=== PATIENT | male | born 1965 | race Caucasian/White ===

== ENCOUNTER 2018-01-14 21:24 | Emergency (ER) | payer OTHER ==
[2018-01-14 21:35] VITALS: BP 134/86; PULSE 95; TEMP 99.6; BMI 28.7
--- NOTE | 2018-01-14 21:48 | PDOC ---
History of Present Illness - History of Present Illness Initial Comments: 01/14/18 22:18 The patient is a 52 year old male with no significant past medical history who presents to the ER with one week history of subjective fever, sore throat, and productive cough. Patient is also complaining of generalized body aches and weakness. Patient states his cough is productive of yellow colored phlegm. Patient denies any blood streaks in his sputum. Patient took Tylenol and Motrin morning but has not taken anything since. Patient reports his last physical was one year ago, and does not currently have a PCP. Patient states one of his coworkers was sick but is now feeling better. Denies recent travel. Patient reports that he does not work outdoors and denies any tick bites. The patient denies chest pain, shortness of breath, headache, and dizziness. Denies chills, nausea, vomit, diarrhea, and constipation. Denies dysuria, frequency, urgency, and hematuria. Allergies: NKA Past surgical history: None reported. Social history: No reported alcohol, drug, or cigarette use. ADULT COMPREHENSIVE ROS CONSTITUTIONAL: Absent: chills, diaphoresis, loss of appetite Present: Subjective fevers. Generalized weakness. Body aches. HEENT: Absent: rhinorrhea, nasal congestion, throat pain, throat swelling, difficulty swallowing, mouth swelling, ear pain, eye pain, visual Changes CARDIOVASCULAR: Absent: chest pain, syncope, palpitations, irregular heart rate, lightheadedness , peripheral edema RESPIRATORY: Absent: shortness of breath, dyspnea with exertion, orthopnea, wheezing, stridor , hemoptysis Present: Cough. Sore throat. GASTROINTESTINAL: Absent: abdominal pain, abdominal distension, nausea, vomiting, diarrhea, constipation, melena, hematochezia GENITOURINARY: Absent: dysuria, frequency, urgency, hesitancy, hematuria, flank pain, genital pain MUSCULOSKELETAL: Absent: myalgia, arthralgia, joint swelling SKIN: Absent: rash, itching, pallor HEMATOLOGIC/IMMUNOLOGIC: Absent: easy bleeding, easy bruising, lymphadenopathy, frequent infections ENDOCRINE: Absent: unexplained weight gain, unexplained weight loss, heat intolerance, cold intolerance NEUROLOGIC: Absent: headache, focal weakness or paresthesias, dizziness, unsteady gait, seizure, mental status changes, bladder or bowel incontinence PSYCHIATRIC: Absent: anxiety, depression, suicidal or homicidal ideation, hallucinations. Adult Comprehensive PE GENERAL: Well developed, well nourished. Awake and alert. No acute distress. HEENT: Normocephalic, atraumatic. PERRLA, EOMI. No conjunctival pallor. Sclera are non- icteric. Moist mucous membranes. Oropharynx is clear. NECK: Supple. Full ROM. No JVD. Carotid pulses 2+ and symmetric, without bruits. No thyromegaly. No lymphadenopathy. CARDIOVASCULAR: Regular rate and rhythm. No murmurs, rubs, or gallops. Distal pulses are 2+ and symmetric. PULMONARY: No evidence of respiratory distress. Lungs clear to auscultation bilaterally. No wheezing, rales or rhonchi. ABDOMINAL: Soft. Non-tender. Non-distended. No rebound or guarding. No organomegaly. Normoactive bowel sounds. MUSCULOSKELETAL Normal range of motion at all joints. No bony deformities or tenderness. No CVA tenderness. EXTREMITIES: No cyanosis. No clubbing. No edema. No calf tenderness. SKIN: Warm and dry. Normal capillary refill. No rashes. No jaundice. NEUROLOGICAL: Alert, awake, appropriate. Cranial nerves 2-12 intact. No deficits to light touch and temperature in face, upper extremities and lower extremities. No motor deficits in the in face, upper extremities and lower extremities. Normoreflexic in the upper and lower extremities. Normal speech. Toes are down- going bilaterally. Gait is normal without ataxia. PSYCHIATRIC: Cooperative. Good eye contact. Appropriate mood and affect. <Deneen Bennett - Last Filed: 01/14/18 22:19> - General History Source: Patient Exam Limitations: No Limitations - History of Present Illness Initial Comments: A portion of this note was documented by scribe services under my direction. I have reviewed the details of the note, within reason, and agree with the documentation. The case summary and management plan written by me. 01/14/18 22:17 This is a 52-year-old male Swedish speaking who required the use of an deaf interpreter to obtain the history. Patient has had 1 week of progressive cough productive of greenish yellow phlegm. Patient has a low-grade fever here in the emergency room otherwise his vitals are normal. Patient had a normal exam however will obtain 8 chest x-ray to rule out infiltrate. 01/14/18 22:40 Chest Xshow a probable retrocardiac infiltrate. Patient will be given a dose of IV ceftriaxone CBC and comp were sent and also a dose of by mouth azithromycin. Patient will be discharged on by mouth azithromycin <Raghav Garcia I - Last Filed: 01/14/18 23:12> - General Chief Complaint: Cold Symptoms Stated Complaint: FEVER/BODY ACHES Time Seen by Provider: 01/14/18 21:28 Past History <Deneen Bennett - Last Filed: 01/14/18 22:19> - Past Medical History COPD: No - Suicide/Smoking/Psychosocial Hx Smoking History: Never smoked <Raghav Garcia I - Last Filed: 01/14/18 23:12> - Past Medical History Allergies/Adverse Reactions: Allergies Allergy/AdvReac Type Severity Reaction Status Date / Time No Known Allergies Allergy Unverified 01/14/18 21:28 Home Medications: Ambulatory Orders Azithromycin [Zithromax 250mg Tablets -] 250 mg PO DAILY #4 tab 01/14/18 Guaifenesin/Dextromethorphan [Mucinex Fast-Max Dm Max Liquid] 180 ml PO Ibuprofen [Motrin Ib] 200 mg PO 01/14/18 Naproxen Sodium 220 mg PO 01/14/18 Phenylephrine/Dm/Acetaminop/GG [Tylenol Cold & Flu Severe Cplt] 1 each PO *Physical Exam - Vital Signs Last Vital Signs Temp Pulse Resp BP Pulse Ox 99.6 F 95 H 16 134/86 96 01/14/18 21:32 01/14/18 21:32 01/14/18 21:32 01/14/18 21:32 01/14/18 21:32 <Deneen Bennett - Last Filed: 01/14/18 22:19> - Vital Signs Last Vital Signs Temp Pulse Resp BP Pulse Ox 99.6 F 95 H 16 134/86 96 01/14/18 21:32 01/14/18 21:32 01/14/18 21:32 01/14/18 21:32 01/14/18 21:32 <Raghav Garcia I - Last Filed: 01/14/18 23:12> ED Treatment Course - LABORATORY CBC & Chemistry Diagram: 01/14/18 22:51 01/14/18 22:51 <Raghav Garcia I - Last Filed: 01/14/18 23:12> *DC/Admit/Observation/Transfer - Attestations Scribe Attestion: 01/14/18 22:19 Documentation prepared by Deneen Bennett, acting as medical clerk for Raghav Garcia MD. <Deneen Bennett - Last Filed: 01/14/18 22:19> <Raghav Garcia I - Last Filed: 01/14/18 23:12> Diagnosis at time of Disposition: Pneumonia Qualifiers: Pneumonia type: due to unspecified organism Laterality: left Lung location: lower lobe of lung Qualified Code(s): J18.1 - Lobar pneumonia, unspecified organism - Discharge Dispostion Disposition: HOME Condition at time of disposition: Stable - Prescriptions Prescriptions: Azithromycin [Zithromax 250mg Tablets -] 250 mg PO DAILY #4 tab - Patient Instructions Additional Instructions: Take azithromycin 1 tablet a day for the next 4 days. You given a first dose tonight so get the prescription filled tomorrow and take it once a day for the next 4 days. Tylenol or Motrin as needed for pain or fevers. No work until next Thursday. Return to the emergency department immediately with ANY new, persistent or worsening symptoms. Continue any medications as previously prescribed by your physician. You should follow up with your primary doctor as soon as possible regarding today's emergency department visit. . Please make sure your doctor reviews the results of your emergency evaluation. Thank you for coming to the Emergency Department today for your care. It was a pleasure to see you today. Please note that your evaluation is INCOMPLETE until you follow-up with your doctor. ome azitromicina 1 tableta al da maddie los prximos 4 min. Le dieron alen primera dosis esta noche, as que obtenga la receta maana y tmela alen vez al da maddie los prximos 4 min. Tylenol o Motrin segn sea necesario para el dolor o la fiebre. No trabajo hasta el prximo lunes. Regrese al departamento de emergencia de inmediato con CUALQUIER sntoma nuevo, persistente o que empeore. Contine con cualquier medicamento recetado previamente por frank mdico. Debe hacer un seguimiento con frank mdico primario arana pronto geovanna sea posible con respecto a la visita del departamento de emergencia de cortney. . Asegrese de que frank mdico revise los resultados de frank evaluacin de emergencia. Cata por venir cortney al Departamento de Emergencia para frank cuidado. Fue un placer verte cortney. Tenga en cuenta que frank evaluacin es INCOMPLETA hasta que bob un seguimiento con frank mdico. - Post Discharge Activity Forms/Work/School Notes: Back to Work
[2018-01-14] MEDS ORDERED: CEFTRIAXONE 1,000 MG in DEXTROSE 5%-WATER - 50 ML IVPB ONE (22:34)
[2018-01-14] MEDS ORDERED: AZITHROMYCIN 250 MG TABLET PO ONE (22:35)
[2018-01-14] MEDS ORDERED: AZITHROMYCIN 500 MG TABLET ONE (22:39)
[2018-01-14] MEDS ORDERED: cefTRIAXone SODIUM 1 GM VIAL ONE (22:39)
[2018-01-14 23:05] LABS: BASO % 0.6 % (0-2.0); EOS % 0.9 % (0-4.5); HEMATOCRIT 39.7 % (35.4-49); HEMOGLOBIN 12.9 GM/dl (11.7-16.9); LYMPH % 18.2 % (8-40); MCH 28.4 pg (25.7-33.7); MCHC 32.7 g/dl (32.0-35.9); MEAN CELL VOLUME 86.9 fl (80-96); MEAN PLT VOLUME 9.5 fl (7.5-11.1); MONO % 10.7 % (3.8-10.2); NEUT % 69.6 % (42.8-82.8); PLATELET COUNT 253 K/MM3 (134-434); RBC 4.57 M/mm3 (4.00-5.60); RDW 12.4 % (11.9-15.9); WHITE BLOOD COUNT 9.3 K/mm3 (4.0-10.8)
[2018-01-14 23:13] LABS: ALBUMIN 3.6 g/dl (3.5-5.0); ALK PHOS 49 U/L (32-92); ANION GAP 7 MMOL/L (8-16); BILIRUBIN,TOTAL 0.7 mg/dl (0.2-1.0); BLOOD UREA NITROGEN 17 mg/dl (7-18); CALCIUM 8.4 mg/dl (8.4-10.2); CHLORIDE 100 mmol/L (98-107); CO2 27 mmol/L (22-28); CREATININE 1.1 mg/dl (0.6-1.3); GLUCOSE,RANDOM 109 mg/dl (74-106); POTASSIUM 3.8 mmol/L (3.5-5.1); SGOT/AST 38 U/L (10-42); SGPT/ALT 38 U/L (10-40); SODIUM 134 mmol/L (136-145); TOT PROT 7.3 g/dl (6.4-8.3)
== END 2018-01-14 23:39 | disposition home or self-care (01) ==
LOC: FER 21:24
DX: J18.1 Lobar pneumonia, unspecified organism (principal)
CPT/HCPCS: 36415; 71046-TC-FY; 80053; 85025; 99281-25

== ENCOUNTER 2021-03-12 04:40 | Day surgery (SDC) | payer OTHER ==
[2021-03-07 14:57] VITALS: BMI 30.2
[2021-03-12 09:49] VITALS: TEMP 98.2
[2021-03-12 10:40] VITALS: BP 111/81; PULSE 69
== END 2021-03-12 10:44 | disposition home or self-care (01) ==
LOC: EDBD → JASU-ENDO 04:40
PROVIDERS: ATTEND Internal Medicine Gastroenterology
PROC: 0DBF8ZX Excision of Right Large Intestine, Via Natural or Artificial Opening Endoscopic, Diagnostic (ICD-10-PCS; principal; 2021-03-12 09:00)
DX: Z12.11 Encounter for screening for malignant neoplasm of colon (principal); D12.6 Benign neoplasm of colon, unspecified; K57.30 Diverticulosis of large intestine without perforation or abscess without bleeding; K63.89 Other specified diseases of intestine; K64.8 Other hemorrhoids
CPT/HCPCS: 88305-TC

== ENCOUNTER 2023-09-22 04:34 | Day surgery (SDC) | payer OTHER ==
[2023-09-16 11:46] VITALS: BMI 29.5
[2023-09-22 08:53] VITALS: TEMP 98.4
[2023-09-22 10:46] VITALS: BP 113/84; PULSE 76; RESP 22
== END 2023-09-22 10:40 | disposition home or self-care (01) ==
LOC: JASU-ENDO 04:34
PROVIDERS: ATTEND Internal Medicine Gastroenterology
PROC: 0DJD8ZZ Inspection of Lower Intestinal Tract, Via Natural or Artificial Opening Endoscopic (ICD-10-PCS; principal; 2023-09-22 09:30)
DX: Z12.11 Encounter for screening for malignant neoplasm of colon (principal); K57.30 Diverticulosis of large intestine without perforation or abscess without bleeding; K64.8 Other hemorrhoids; Z86.010 Personal history of colon polyps